=== PATIENT | male | born 1955 | race Hispanic/Latino ===

== ENCOUNTER 2024-06-01 19:59 | Inpatient (IN) | payer OTHER ==
[2024-06-01] MEDS ORDERED: ACETAMINOPHEN 500 MG TAB ONE (21:18)
[2024-06-01] MEDS ORDERED: NA CHLORIDE 0.9% 1,000 ML ONE (21:18)
[2024-06-01 21:35] LABS: Absolute Basophils 0.1 K/uL (0-0.5); Absolute Lymphocytes (CBC) 0.7 K/uL (0.7-4.9); Absolute Monocytes 0.3 K/uL (0.1-1.3); Basophils % 0.5 % (0-1.3); Eosinophils % 0.3 % (0-4.4); Hematocrit 39.7 % (39.6-49.0); Hemoglobin 13.6 g/dL (13.6-17.9); Lymphocytes % 5.4 % (15.3-44.8); MCH 32.1 pg (27.0-35.0); MCHC 34.3 g/dL (32.0-36.0); MCV 93.7 fL (80-100); MPV 8.9 fL (7.6-11.3); Monocytes % 2.1 % (3.3-12.3); Neutrophils % 91.7 % (41.7-73.7); Platelets 158 thou/uL (152-406); RBC Red Blood Cell Count 4.23 M/uL (4.33-5.43); Red Cell Distribution Width 14.1 % (12.1-15.2)
[2024-06-01 21:42] LABS: Specific Gravity 1.013 (1.005-1.030); Sqamous Epithelial <5 /HPF (None Seen); Urine Bacteria None Seen /HPF (<20); Urine Bilirubin NEGATIVE (Negative); Urine Blood 1+ (Negative); Urine Clarity Extremely Turbid (Clear); Urine Color Light-Yellow (Yellow); Urine Crystals Unidentified Few /HPF (None Seen); Urine Culture Reflex Order REFLEXED; Urine Glucose NEGATIVE (Negative); Urine Ketones NEGATIVE (Negative); Urine Microscopic Reflex YN ORDER UMIC; Urine Nitrite NEGATIVE (Negative); Urine Protein 1+ (Negative); Urine Urobilinogen Normal (Normal); Urine WBC >50 /HPF (<5); Urine WBC Clump Few /HPF (None Seen); Urine Yeast (Budding) Moderate /HPF (None Seen)
[2024-06-01 21:49] LABS: Albumin 3.8 g/dL (3.4-5.0); Albumin/Globulin Ratio 1.1 (1.1-1.8); Bilirubin Total 1.3 mg/dL (0.2-1.0); Globulin 3.5 g/dL (2.3-3.5); Protein, Total 7.3 g/dL (6.4-8.2)
[2024-06-01 21:54] LABS: Influenza A Ag Negative; Influenza B Ag Negative; SARS-CoV-2 Antigen Rapid Res Negative (Negative)
[2024-06-01 21:55] LABS: PT Prothrombin Time 13.4 SECONDS (10-13.0); PTT, Activated Partial Thromb 26.7 SECONDS (27.2-37.4); Protime INR 1.18
--- NOTE | 2024-06-01 22:35 | RAD REPORT ---
EXAMINATION: CT ABDOMEN AND PELVIS WITH CONTRAST CLINICAL INDICATION: sepsis, pyelo? TECHNIQUE: CT abdomen and pelvis was performed, after the administration of IV contrast, [facility]. Axial, sagittal and coronal reconstructions were obtained. One or more of the following dose reduction techniques were used: Automated exposure control, adjustment of the mA and k V according to patient size, and iterative reconstruction. Unless otherwise specified, incidental findings do not require dedicated imaging follow-up. COMPARISON: No prior exam. FINDINGS: LOWER CHEST: The visualized lung bases are clear. Small hiatal hernia. LIVER: Mild fatty liver is present. No focal lesion or biliary dilatation is seen. Grossly unremark able gallbladder. SPLEEN: Normal size. No focal lesion. 28 mm splenic artery aneurysm. PANCREAS: No mass, ductal dilation, or shila-pancreatic fluid. ADRENALS: Normal; no mass. KIDNEYS: Multiple cysts bilaterally, including complicated cyst measuring 5.3 cm left superior pole m edially. No solid mass or hydronephrosis. GASTROINTESTINAL TRACT: No evidence of free air, significant intra-abdominal free fluid, bowel obstru ction or abscess. There is mild diverticulosis coli of the sigmoid colon without diverticulitis. APPENDIX: Normal appendix. LYMPH NODES: No lymphadenopathy. MUSCULOSKELETAL: Moderate lower lumbar degenerative changes. ADDITIONAL FINDINGS: Mild prostate gland edema/inflammation possible. IMPRESSION: Mild prostatitis is a possibility. Recommend correlation with clinical prostate examination. Complex cystic lesion measuring 5.3 cm left medial kidney. Recommend follow-up MRI of the kidneys wit h contrast for further evaluation. 28 mm splenic artery aneurysm.
[2024-06-01 22:38] LABS: Band Neutrophils 25 % (0-1); Differential Total Cells Count 100; Lymphocytes 9 % (15-42); Monocytes 2 % (0-10); Segmented Neutrophils 64 % (40-80)
[2024-06-01 22:39] LABS: Blood Morphology Comment NOT SEEN (NOT SEEN); Platelet Estimate ADEQ
--- NOTE | 2024-06-01 22:45 | ER ---
Nurse's Notes [facility] Name: Nigel Horn Age: 68 yrs Sex: Male : 1955 Arrival Date: 06/01/2024 Time: 19:59 Bed 19 Private MD: Fidel Garcia Diagnosis: Acute prostatitis;Severe sepsis without septic shock Presentation: 06/01 20:25 Chief complaint: Patient states: BURNING WITH URINATION, FEVER AND MIDDLE BACK PAIN X1 dd2 DAY. Coronavirus screen: At this time, the client does not indicate any symptoms associated with coronavirus-19. Ebola Screen: No symptoms or risks identified at this time. Initial Sepsis Screen: Does the patient meet any 2 criteria? Temp <36.0*C (96.8*F)) or > 38.3*C (100.9*F). HR > 90 bpm. Yes Does the patient have a suspected source of infection? If YES to both, name of provider notified: Angie Mcgee PA-C. Risk Assessment: Do you want to hurt yourself or someone else? Patient reports no desire to harm self or others. Onset of symptoms was June 01, 2024. 20:25 Method Of Arrival: Ambulatory dd2 20:25 Acuity: RANJANA 3 dd2 Triage Assessment: 20:28 General: Appears in no apparent distress. uncomfortable, Behavior is calm, cooperative, dd2 appropriate for age. Pain: Complains of pain in lumbar area Pain does not radiate. Pain currently is 6 out of 10 on a pain scale. : Urine is cloudy, Reports burning with urination, pain in lower back. Historical: - Allergies: 20:27 No Known Allergies; dd2 - PMHx: 20:27 Hypertensive disorder; BPH; Hypothyroidism; dd2 20:28 Kidney stone; dd2 - PSHx: 20:27 Lithotripsy; dd2 - Immunization history:: Adult Immunizations up to date. - Infectious Disease History:: Denies. - Social history:: Smoking status: Patient denies any tobacco usage or history of. Screenin:30 [facility] ED Fall Risk Assessment (Adult) History of falling in the last 3 months, kj2 including since admission No falls in past 3 months (0 pts) Confusion or Disorientation No (0 pts) Intoxicated or Sedated No (0 pts) Impaired Gait No (0 pts) Mobility Assist Device Used No (0 pt) Altered Elimination No (0 pt) Score/Fall Risk Level 0 - 2 = Low Risk Maintained a safe environment, Hourly rounding (assess needs \T\ fall precautionary measures) done. Abuse screen: Denies threats or abuse. Denies injuries from another. Nutritional screening: No deficits noted. Tuberculosis screening: No symptoms or risk factors identified. Assessment: 20:30 General: Appears in no apparent distress. uncomfortable, Behavior is calm, cooperative. kj2 Pain: Complains of pain in back and lumbar area Pain currently is 8 out of 10 on a pain scale. Neuro: Level of Consciousness is awake, alert, obeys commands, Oriented to person, place, time, situation. Cardiovascular: Patient's skin is warm and dry. Respiratory: No deficits noted. GI: No deficits noted. : Parent/caregiver report the patient having pain with urination. 21:30 Reassessment: Patient appears in no apparent distress at this time. Patient and/or kj2 family updated on plan of care and expected duration. Pain level reassessed. Patient is alert, oriented x 3, equal unlabored respirations, skin warm/dry/pink. 22:25 Reassessment: Patient appears in no apparent distress at this time. Patient and/or kj2 family updated on plan of care and expected duration. Pain level reassessed. Patient is alert, oriented x 3, equal unlabored respirations, skin warm/dry/pink. 23:30 Reassessment: Patient appears in no apparent distress at this time. Patient and/or kj2 family updated on plan of care and expected duration. Pain level reassessed. Patient is alert, oriented x 3, equal unlabored respirations, skin warm/dry/pink. Vital Signs: 20:25 BP 130 / 87; Pulse 109; Resp 16; Temp 101.2; Pulse Ox 95% on R/A; Weight 95.25 kg (R); dd2 Height 5 ft. 7 in. ; Pain 6/10; 21:30 BP 136 / 76; Pulse 86; Resp 26; Pulse Ox 95% on 2.5 lpm NC; kj2 22:15 BP 133 / 75; Pulse 80; Resp 22; Pulse Ox 95% on 2.5 lpm NC; kj2 20:25 Body Mass Index 32.89 (95.25 kg, 170.18 cm) dd2 20:25 Pain Scale: Adult dd2 ED Course: 20:03 Patient arrived in ED. gm2 20:04 Fidel Garcia MD is Private Physician. gm2 20:14 Angie Mcgee PA-C is PHCP. sb4 20:14 Hosea Rivas MD is Attending Physician. sb4 20:27 Triage completed. dd2 20:28 Arm band placed on right wrist. dd2 20:30 Patient has correct armband on for positive identification. Call light in reach. Side kj2 rails up X 1. Adult w/ patient. Provided Education on: call light. 20:30 No provider procedures requiring assistance completed. kj2 20:52 EKG done, by ED staff, reviewed by Angie Mcgee PA-C. oe 20:54 First set of blood cultures drawn by me. oe 21:12 Second set of blood cultures drawn by me. oe 21:22 Marilu Mena, LUIS EDUARDO is Primary Nurse. kj2 21:22 Inserted saline lock: 20 gauge in right forearm, using aseptic technique. Blood oe collected. Flushed with 10 mL NS. 21:22 COVID-19 Ag + Flu A+B Ag Sent. oe 21:22 Blood Culture Adult (2) Sent. oe 21:23 CBC with Diff Sent. oe 21:23 CMP Sent. oe 21:23 Lactate w/ 2H reflex if indic. Sent. oe 21:23 Protime (+inr) Sent. oe 21:23 Ptt, Activated Sent. oe 21:23 Urinalysis w/ reflexes Sent. oe 22:29 CT Abd/Pelvis - IV Contrast Only In Process Unspecified. EDMS 22:44 Puneet Mccallum MD is Hospitalizing Provider. sb4 06/02 00:17 Report given to LUIS EDUARDO Evans. kj2 00:20 Patient admitted, IV remains in place. intact, No redness/swelling at site. rg5 03:10 Urinalysis w/ reflexes Sent. rg5 03:31 Glucose, Ancillary Testing Sent. rg5 Administered Medications: 06/01 21:27 Drug: Acetaminophen PO 1000 mg PO once Route: PO; kj2 23:17 Follow up: Response: No adverse reaction kj2 21:27 Drug: NS 0.9% IV 1000 ml IV at 1 bolus Per protocol; to be given as a bolus over 60 kj2 minutes Route: IV; Rate: 1 bolus; Site: right forearm; 06/02 00:00 Follow up: IV Status: Completed infusion; IV Intake: 1000ml rg5 06/01 23:09 Drug: Ciprofloxacin IVPB 400 mg 200 ml IVPB once over 60 mins Volume: 200 ml; Route: kj2 IVPB; Infused Over: 60 mins; Site: right forearm; 06/02 00:14 Follow up: Response: No adverse reaction kj2 00:20 Follow up: IV Status: Completed infusion; IV Intake: 200ml rg5 Medication: 01:36 VIS not applicable for this client. rg5 Intake: 00:00 IV: 1000ml; Total: 1000ml. rg5 00:20 IV: 200ml; Total: 1200ml. rg5 Outcome: 06/01 22:45 Decision to Hospitalize by Provider. sb4 06/02 00:20 Ad[facility] to ER Hold. [facility]. rg5 00:20 Condition: stable rg5 00:20 Instructed on the need for admit, 14:53 Patient left the ED. ap3 Signatures: Dispatcher [employer] EDMS Marquis Loza Amanda RN RN ap3 Angie Mcgee PA-C PA-C sb4 Lisa Castle gm2 Nathan Jordan RN RN rg5 Marilu Mena RN RN kj2 GISELA BENSON RN RN dd2 Corrections: (The following items were deleted from the chart) 06/01 20:34 20:25 Initial Sepsis Screen: Does the patient meet any 2 criteria? No. Patient's dd2 initial sepsis screen is negative. Does the patient have a suspected source of infection? No. Patient's initial sepsis screen is negative. dd2 21:00 20:59 NS 0.9% IV 1000 ml IV at 1 bolus in left antecubital kj2 kj2
--- NOTE | 2024-06-01 22:45 | EDPHYS ---
Physician Documentation [facility] Name: Nigel Horn Age: 68 yrs Sex: Male : 1955 Arrival Date: 06/01/2024 Time: 19:59 Bed 19 Private MD: Fidel Garcia ED Physician Hosea Rivas HPI: 06/01 22:08 This 68 yrs old Male presents to ER via Ambulatory with complaints of Pain sb4 With Urination, Fever. 22:08 Patient reports burning with urination, fever, and chills that all started this sb4 afternoon. He also reports of pain in his mid lower back, but states that he did have a bout of shingles recently as well. He reports history of UTIs and states that this feels similar. He denies any nausea, vomiting, diarrhea. Historical: - Allergies: 20:27 No Known Allergies; dd2 - PMHx: 20:27 Hypertensive disorder; BPH; Hypothyroidism; dd2 20:28 Kidney stone; dd2 - PSHx: 20:27 Lithotripsy; dd2 - Immunization history:: Adult Immunizations up to date. - Infectious Disease History:: Denies. - Social history:: Smoking status: Patient denies any tobacco usage or history of. ROS: 22:08 Abdomen/GI: Negative for abdominal pain, nausea, vomiting, diarrhea, and constipation, sb4 22:08 Constitutional: Positive for body aches, chills, fever, 22:08 Back: Positive for pain at rest, 22:08 : Positive for burning with urination, 22:08 All other systems are negative, Exam: 22:08 Constitutional: This is a well developed, well nourished patient who is awake, alert, sb4 and in no acute distress. Head/Face: Normocephalic, atraumatic. Eyes: Extra-ocular motions intact. Periorbital areas with no swelling, redness, or edema. ENT: Mucous membranes moist. Cardiovascular: Regular rate and rhythm with a normal S1 and S2. Respiratory: No increased work of breathing, no retractions or nasal flaring. Abdomen/GI: Soft, non-tender, no distension. Back: No spinal tenderness. No costovertebral tenderness. Full range of motion. Skin: Warm, dry with normal turgor. Normal color with no rashes, no lesions, and no evidence of cellulitis. Vital Signs: 20:25 BP 130 / 87; Pulse 109; Resp 16; Temp 101.2; Pulse Ox 95% on R/A; Weight 95.25 kg (R); dd2 Height 5 ft. 7 in. ; Pain 6/10; 21:30 BP 136 / 76; Pulse 86; Resp 26; Pulse Ox 95% on 2.5 lpm NC; kj2 22:15 BP 133 / 75; Pulse 80; Resp 22; Pulse Ox 95% on 2.5 lpm NC; kj2 20:25 Body Mass Index 32.89 (95.25 kg, 170.18 cm) dd2 20:25 Pain Scale: Adult dd2 MDM: 20:17 Medical Screening Exam initiated sb4 22:45 Data reviewed: vital signs, nurses notes, lab test result(s), EKG, radiologic studies, sb4 and as a result, I will admit patient. Consideration of Admission/Observation Patient was admitted/placed on observation. Care significantly affected by the following chronic conditions: Hypertension, Obesity. Counseling: I had a detailed discussion with the patient and/or guardian regarding the historical points, exam findings, and any diagnostic results supporting the discharge/admit diagnosis, lab results, radiology results, the need for further work-up and treatment in the hospital. Special discussion: I discussed with the patient the need to follow-up with the PCP/specialist for the noted incidental finding on X-ray/CT scanning. 06/01 20:28 Order name: Blood Culture Adult (2) sb4 06/01 20:28 Order name: CBC with Diff; Complete Time: 22:39 sb4 06/01 20:28 Order name: CMP; Complete Time: 21:49 sb4 06/01 20:28 Order name: Lactate w/ 2H reflex if indic.; Complete Time: 21:59 sb4 06/01 20:28 Order name: Protime (+inr); Complete Time: 21:59 sb4 06/01 20:28 Order name: Ptt, Activated; Complete Time: 21:59 sb4 06/01 20:28 Order name: Urinalysis w/ reflexes; Complete Time: 21:45 sb4 06/01 20:43 Order name: COVID-19 Ag + Flu A+B Ag; Complete Time: 21:59 sb4 06/01 21:45 Order name: Glucose, Ancillary Testing; Complete Time: 21:49 EDMS 06/01 21:47 Order name: Glucose, Ancillary Testing EDMS 06/01 21:47 Order name: Urine Culture EDMS 06/01 21:52 Order name: Manual Differential; Complete Time: 22:39 EDMS 06/01 21:56 Order name: Ghost Lactate-NO COLLECT Timer; Complete Time: 23:57 EDMS 06/01 23:47 Order name: Urinalysis w/ reflexes EDMS 06/01 23:47 Order name: CBC with Automated Diff EDMS 06/01 23:47 Order name: CBC with Automated Diff EDMS 06/01 23:47 Order name: Comprehensive Metabolic Panel EDMS 06/01 23:47 Order name: Comprehensive Metabolic Panel EDMS 06/02 01:05 Order name: Lactate Sepsis 2 HR Follow-up; Complete Time: 01:06 EDMS 06/01 22:00 Order name: CT Abd/Pelvis - IV Contrast Only; Complete Time: 22:36 sb4 06/01 20:28 Order name: Accucheck; Complete Time: 21:22 sb4 06/01 20:28 Order name: Cardiac monitoring; Complete Time: 21:22 sb4 06/01 20:28 Order name: EKG - Nurse/Tech; Complete Time: 21:22 sb4 06/01 20:28 Order name: IV Saline Lock - Large Bore; Complete Time: 21:22 sb4 06/01 20:28 Order name: Labs collected and sent; Complete Time: 21:22 sb4 06/01 20:28 Order name: O2 Per Protocol; Complete Time: 21:43 sb4 06/01 20:28 Order name: O2 Sat Monitoring; Complete Time: 21:43 sb4 06/01 20:28 Order name: Vital Signs; Complete Time: 21:28 sb4 EC:46 Rate is 109 beats/min. Rhythm is regular, Sinus tachycardia. Right axis deviation sb4 noted. [place] interval is normal at 86 msec. QRS interval is normal at 86 msec. QT interval is normal at 320 msec. No Q waves. T waves are Normal. No ST changes noted. Clinical impression: Sinus tachycardia. Interpreted by me. Reviewed by me. Administered Medications: 21:27 Drug: Acetaminophen PO 1000 mg PO once Route: PO; kj2 23:17 Follow up: Response: No adverse reaction kj2 21:27 Drug: NS 0.9% IV 1000 ml IV at 1 bolus Per protocol; to be given as a bolus over 60 kj2 minutes Route: IV; Rate: 1 bolus; Site: right forearm; 06/02 00:00 Follow up: IV Status: Completed infusion; IV Intake: 1000ml rg5 06/01 23:09 Drug: Ciprofloxacin IVPB 400 mg 200 ml IVPB once over 60 mins Volume: 200 ml; Route: kj2 IVPB; Infused Over: 60 mins; Site: right forearm; 06/02 00:14 Follow up: Response: No adverse reaction kj2 00:20 Follow up: IV Status: Completed infusion; IV Intake: 200ml rg5 Disposition: 05:07 Co-signature as Attending Physician, Hosea Rivas MD I agree with the assessment sp4 and plan of care. I reviewed the patient's care provided by Advanced Practice Provider \T\ agree w/ the diagnosis \T\ care plan. I personally saw the pt \T\ performed a substantive portion of the visit, incldng all aspects of the (History/Exam/Medical Decision Making). Disposition Summary: 06/01/24 22:45 Hospitalization Ordered Notes: Hospitalization Status: Inpatient Admission sb4 Provider: Puneet Mccallum sb4 Condition: Fair sb4 Problem: new sb4 Symptoms: are unchanged sb4 Bed/Room Type: Standard sb4 Location: Telemetry/MedSurg (Inpatient)(06/02/24 13:22) bd Room Assignment: 225(06/02/24 13:22) bd Diagnosis - Acute prostatitis sb4 - Severe sepsis without septic shock sb4 Forms: - Medication Reconciliation Form sb4 - SBAR form sb4 - Leadership Thank You Letter sb4 Signatures: Dispatcher [employer] EDAsia Gregory Sophia, PA-C PAMaria Victoria sb4 Hosea Rivas MD MD sp4 Sonia Gutiérrez Krystal, RN RN kj2 GISELA BENSON RN RN dd2 Nathan Jordan RN rg5 Corrections: (The following items were deleted from the chart) 06/01 20:29 20:29 BLOOD CULTURE*+BA.LAB.BRZ ordered. EDMS EDMS 20:29 20:29 CBC+H.LAB.BRZ ordered. EDMS EDMS 20: 20:29 COMPREHENSIVE METABOLIC PANEL+C.LAB.BRZ ordered. EDMS EDMS 20: 20:29 LACTATE+C.LAB.BRZ ordered. EDMS EDMS 20: 20:29 PROTIME (+INR)+COAG.LAB.BRZ ordered. EDMS EDMS 20: 20:29 PTT, ACTIVATED+COAG.LAB.BRZ ordered. EDMS EDMS 20: 20:29 Urinalysis+U.LAB.BRZ ordered. EDMS EDMS 20:44 20:44 COVID-19 Ag + Flu A+B Ag+I.LAB.BRZ ordered. EDMS EDMS 23:37 22:45 Telemetry/MedSurg (Inpatient) sb4 vk 23:37 22:45 sb4 vk 23:56 23:56 LACTATE+C.LAB.BRZ ordered. EDMS EDMS 06/02 13:22 06/01 23:37 [facility] ER HOLD vk bd 06/02 13:22 06/01 23:37 ERHOLD- vk bd
[2024-06-01] MEDS ORDERED: CIPROFLOXACIN 400mg IV 400 MG/200 ML BAG IV ONE (23:04)
[2024-06-01] MEDS ORDERED: ONDANSETRON 4 MG/2 ML VIAL IV PRN (23:43)
--- NOTE | 2024-06-01 23:43 | P.HP ---
Certification for Inpatient Patient admitted to: Inpatient With expected LOS: >2 Midnights Practitioner: I am a practitioner with admitting privileges, knowledge of patient current condition, hospital course, and medical plan of care. Services: Services provided to patient in accordance with Admission requirements found in Title 42 Section 412.3 of the Code of Federal Regulations Patient History Date of Service: 06/02/24 Reason for admission: Dysuria History of Present Illness: 68 yrs old Male with past medical history of hypertension, hypothyroidism, BPH, history of kidney stone status post lithotripsy who was brought to ER with dysuria and subjective fever which has been going on since this morning. Patient started having subjective fever and associated chills this afternoon later on started having urination difficulties and dysuria. He also complains of pain in mid lower back. Patient denies any nausea vomiting or diarrhea. No sick contacts. Patient was assessed in the ER and was admitted for further management of possible prostatitis Allergies No Known Allergies Allergy (Unverified 06/01/24 23:48) Home medications list reviewed: Yes - Past Medical/Surgical History Past Medical History: Reviewed- Non-Contributory -: Hypertension, BPH, kidney stones Past Surgical History: Reviewed- Non-Contributory -: Lithotripsy - Family History Family History: Reviewed- Non-Contributory - Social History Smoking Status: Never smoker Review of Systems 10-point ROS is otherwise unremarkable Physical Examination - Vital Signs Temperature: 98.5 F Blood Pressure: 128/77 Pulse: 76 Respirations: 18 Pulse Ox (%): 94 - Physical Exam General: Alert, Oriented x3, Mild distress HEENT: Atraumatic, Normocephalic Neck: Supple, No Thyromegaly Respiratory: Clear to auscultation bilaterally, Normal air movement Capillary refill: <2 Seconds Gastrointestinal: Soft and benign, W/out hepatosplenomegaly Musculoskeletal: No clubbing, No swelling Integumentary: No rashes, No tenderness/swelling Neurological: Other (Alert , Awake , non focal ) Lymphatics: No axilla or inguinal lymphadenopathy - Studies Laboratory Data (last 24 hrs) 06/01/24 06/01/24 06/01/24 20:54 20:54 20:54 WBC 13.10 H Hgb 13.6 Hct 39.7 Plt Count 158 PT 13.4 H INR 1.18 APTT 26.7 L Sodium 132 L Potassium 3.0 L BUN 15 Creatinine 1.10 Glucose 128 H Total Bilirubin 1.3 H AST 20 ALT 31 Alkaline Phosphatase 54 Assessment and Plan - Plan Severe sepsis Lactic acidosis Leukocytosis Prostatitis UTI Monitor closely on telemetry Aggressive hydration Started on IV antibiotic Obtain cultures Change antibiotic as per sensitivity Hyponatremia Hypokalemia Monitor renal parameters Electrolytes monitor and replace accordingly Hypertension Antihypertensives titrated Continue home medications and titrate as needed GI/DVT prophylaxis Advanced directive full code Discharge Plan: Home Plan to discharge in: 48 Hours - Advance Directives Does patient have a Living Will: No Does patient have a Durable POA for Healthcare: No - Code Status/Comfort Care Code Status: Full Code Time Spent Managing Pts Care (In Minutes): 54
[2024-06-01] MEDS: NA CHLORIDE 0.9% 1,000 ML IV SCH (23:45)
[2024-06-01] MEDS ORDERED: HYDROCODONE/APAP 5/325 MG TAB PO PRN (23:46)
[2024-06-01] MEDS ORDERED: MORPHINE 2 MG/ML SYR IV PRN (23:46)
[2024-06-02 00:04] VITALS: BMI 32.7
[2024-06-02] MEDS ORDERED: NA CHLORIDE 0.9% 1,000 ML ONE ×2 (01:19→08:09)
[2024-06-02] MEDS ORDERED: NA CHLORIDE 0.9% 50 ML ONE (01:20)
[2024-06-02] MEDS ORDERED: PIPERACIL/TAZO 3.375 GM VIAL IV ONE ×2 (01:20→08:09)
[2024-06-02] MEDS: PIPER TAZO 3.375 GM in NA CHLORIDE 0.9% 100 ML IV ONE (01:21)
[2024-06-02 05:21] LABS: Absolute Basophils 0.1 K/uL (0-0.5); Absolute Lymphocytes (CBC) 1.4 K/uL (0.7-4.9); Absolute Neutrophil 17.2 K/uL (1.8-8.0); Basophils % 0.4 % (0-1.3); Eosinophils % 0.1 % (0-4.4); Hematocrit 36.5 % (39.6-49.0); Hemoglobin 12.9 g/dL (13.6-17.9); Lymphocytes % 7.1 % (15.3-44.8); MCHC 35.2 g/dL (32.0-36.0); MCV 93.6 fL (80-100); Monocytes % 5.2 % (3.3-12.3); Neutrophils % 87.2 % (41.7-73.7); Nucleated Red Blood Cells % 0.1 % (0-0); Platelets 144 thou/uL (152-406); Red Cell Distribution Width 14.1 % (12.1-15.2)
[2024-06-02 05:43] LABS: Albumin 3.2 g/dL (3.4-5.0); Anion Gap 9.9 mEq/L (5.0-15.0); Bilirubin Total 1.3 mg/dL (0.2-1.0); Globulin 3.2 g/dL (2.3-3.5); Potassium 2.9 mEq/L (3.5-5.1); Protein, Total 6.4 g/dL (6.4-8.2)
--- NOTE | 2024-06-02 06:59 | P.PN ---
Date of Service: 06/02/24 Subjective: feeling better denies having rectal pain reports had prostatitis in his early 20s, h/o kidney stones, but denies many UTIs ROS: 10 point ROS as noted above, otherwise negative Physical Exam: GEN: Alert, oriented, NAD CV: Regular rate and rhythm, no edema Pulm: Nonlabored respirations on room air, clear bilaterally ABD: soft, nontender, nondistended Problem List: Severe sepsis likely secondary to acute prostatitis vs UTI Hypokalemia Hyponatremia, improved Left kidney cystic lesion - 5.3 cm, incidental finding Hypertension Hypothyroidism BPH Hx nephrolithiasis s/p lithotripsy Severe sepsis likely secondary to acute prostatitis vs UTI Hx nephrolithiasis s/p lithotripsy on admission presents with dysuria, lower back pain, fever/chills for ~1 day. Denies n/v/d. Denies recent sick contacts. Recently got over episode of shingles. CT abd/pelvis (06/01): Possible Mild prostatitis. Complex cystic lesion measuring 5.3 cm left medial kidney. 28 mm splenic artery aneurysm UA+ with moderate yeast. Flu/Covid negative. Follow urine and blood cultures. empiric Zosyn (06/02-) pain control Hypokalemia Hyponatremia, improved given 1L IVF bolus in ED. Monitor and replete electrolytes as needed. Continue IV fluids. Left kidney cystic lesion - 5.3 cm, incidental finding CT abdomen incidentally noted a complex cystic lesion measuring 5.3 cm left medial kidney. Hypertension Hypothyroidism BPH confirm home meds, restart as appropriate VTE: Lovenox Code: Full Dispo: Home, ~2-3 days pending cultures / improvement Time Spent Managing Pts Care (In Minutes): 55
[2024-06-02] MEDS ORDERED: ENOXAPARIN 40 MG/0.4 ML SQ ONE (08:08)
[2024-06-02] MEDS ORDERED: NA CHLORIDE 0.9% 100 ML ONE (08:08)
[2024-06-02] MEDS: ENOXAPARIN 40 MG/0.4 ML SQ SCH (08:24)
[2024-06-02] MEDS: PIPER TAZO 3.375 GM in NA CHLORIDE 0.9% 100 ML IV SCH (08:25)
[2024-06-02] MEDS ORDERED: ACETAMINOPHEN 325 MG TABLET ONE (12:30)
[2024-06-02] MEDS: ACETAMINOPHEN 325 MG TABLET PO PRN (12:39)
[2024-06-02] MEDS: KCL 20 MEQ/100 mL IVPB 20 MEQ/100 ML BAG IV SCH (15:07)
[2024-06-02] MEDS: ACETAMINOPHEN 325 MG TABLET PO ONE (15:48)
[2024-06-03 02:31] LABS: C.diff Antigen/Toxin Ag neg : Tox neg (NEG : NEG); CDIFF INTERNAL NEG CONTROL White Background (WHITE BKGD); STOOL CONSISTENCY Liquid/Semi-Solid
[2024-06-03 05:01] LABS: Absolute Lymphocytes (CBC) 1.8 K/uL (0.7-4.9); Absolute Monocytes 1.2 K/uL (0.1-1.3); Absolute Neutrophil 15.6 K/uL (1.8-8.0); Basophils % 0.2 % (0-1.3); Eosinophils % 0.1 % (0-4.4); Hematocrit 33.9 % (39.6-49.0); Hemoglobin 11.8 g/dL (13.6-17.9); Lymphocytes % 9.8 % (15.3-44.8); MCH 32.9 pg (27.0-35.0); MCHC 34.8 g/dL (32.0-36.0); MCV 94.6 fL (80-100); MPV 9.6 fL (7.6-11.3); Monocytes % 6.4 % (3.3-12.3); Neutrophils % 83.5 % (41.7-73.7); Platelets 116 thou/uL (152-406); RBC Red Blood Cell Count 3.58 M/uL (4.33-5.43); Red Cell Distribution Width 14.1 % (12.1-15.2)
[2024-06-03 05:27] LABS: Albumin/Globulin Ratio 0.9 (1.1-1.8); Anion Gap 10.1 mEq/L (5.0-15.0); Bilirubin Total 1.8 mg/dL (0.2-1.0); Globulin 3.3 g/dL (2.3-3.5); Potassium 3.1 mEq/L (3.5-5.1); Protein, Total 6.3 g/dL (6.4-8.2)
[2024-06-03] MEDS: Magnesium Sulfate 2gm IVPB 2 G/50 ML BAG IV ONE (06:10)
[2024-06-03] MEDS: KCL 20 MEQ/100 mL IVPB 20 MEQ/100 ML BAG IV SCH (06:10)
[2024-06-03] MEDS: LOPERAMIDE HCL 2 MG CAPSULE PO PRN (06:10)
[2024-06-03] MEDS: LEVOTHYROXINE SOD 0.05 MG TABLET PO SCH (09:04)
[2024-06-03] MEDS: ASPIRIN EC 81 MG TAB PO SCH (09:04)
[2024-06-03] MEDS: TAMSULOSIN 0.4 MG SR CAP PO SCH (09:04)
--- NOTE | 2024-06-03 12:12 | P.PN ---
Date of Service: 06/03/24 Subjective: continues with some dysuria but improving compared to yesterday multiple episodes of diarrhea overnight; ~6 times in the last 24 hours. otherwise doing okay appetite improving ambulating without issues ROS: 10 point ROS as noted above, otherwise negative Physical Exam: GEN: Alert, oriented, NAD CV: Regular rate and rhythm, no edema Pulm: Nonlabored respirations on room air, clear bilaterally ABD: soft, nontender, nondistended Problem List: Severe sepsis likely secondary to acute prostatitis vs UTI Hypokalemia Hyponatremia, improved Left kidney cystic lesion - 5.3 cm, incidental finding Hypertension Hypothyroidism BPH Hx nephrolithiasis s/p lithotripsy Severe sepsis likely secondary to acute prostatitis vs UTI Hx nephrolithiasis s/p lithotripsy on admission presents with dysuria, lower back pain, fever/chills for ~1 day. Denies n/v/d. Denies recent sick contacts. Recently got over episode of shingles. CT abd/pelvis (06/01): Possible Mild prostatitis. Complex cystic lesion measuring 5.3 cm left medial kidney. 28 mm splenic artery aneurysm UA+ with moderate yeast. Flu/Covid negative. Follow urine and blood cultures. empiric Zosyn (06/02-) pain control 06/03 - Urine culture prelim growing 3+ GNR multiple episodes of diarrhea yesterday; C. diff negative PRN imodium added afebrile, leukocytosis improving Dysuria improving Hypokalemia Hyponatremia, improved given 1L IVF bolus in ED. Monitor and replete electrolytes as needed. 06/03 - dc IVF Left kidney cystic lesion - 5.3 cm, incidental finding CT abdomen incidentally noted a complex cystic lesion measuring 5.3 cm left medial kidney. Hypertension Hypothyroidism BPH confirm home meds, restart as appropriate VTE: Lovenox Code: Full Dispo: Home, ~1-2 days pending final cultures / improvement Time Spent Managing Pts Care (In Minutes): 55
[2024-06-03] MEDS: POTASSIUM CL SA 10 MEQ TAB PO ONE (20:56)
[2024-06-03] MEDS: ATORVASTATIN 10 MG TAB PO SCH (20:56)
[2024-06-03] MEDS: MAGNESIUM OXIDE 400 MG TAB PO SCH (20:57)
[2024-06-04 04:45] LABS: Absolute Eosinophils 0.1 K/uL (0-0.5); Absolute Lymphocytes (CBC) 1.1 K/uL (0.7-4.9); Absolute Monocytes 0.4 K/uL (0.1-1.3); Absolute Neutrophil 7.4 K/uL (1.8-8.0); Basophils % 0.4 % (0-1.3); Eosinophils % 1.4 % (0-4.4); Hematocrit 34.4 % (39.6-49.0); Hemoglobin 12.1 g/dL (13.6-17.9); Lymphocytes % 12.3 % (15.3-44.8); MCH 32.9 pg (27.0-35.0); MCHC 35.1 g/dL (32.0-36.0); MCV 93.7 fL (80-100); MPV 9.7 fL (7.6-11.3); Monocytes % 4.7 % (3.3-12.3); Neutrophils % 81.2 % (41.7-73.7); Nucleated Red Blood Cells % 0.1 % (0-0); Platelets 120 thou/uL (152-406); RBC Red Blood Cell Count 3.68 M/uL (4.33-5.43); Red Cell Distribution Width 14.3 % (12.1-15.2)
[2024-06-04 05:58] LABS: Albumin/Globulin Ratio 0.8 (1.1-1.8); Anion Gap 9.2 mEq/L (5.0-15.0); Bilirubin Total 0.9 mg/dL (0.2-1.0); Globulin 3.9 g/dL (2.3-3.5); Magnesium 1.6 mg/dL (1.6-2.4); Potassium 3.2 mEq/L (3.5-5.1); Protein, Total 6.9 g/dL (6.4-8.2)
[2024-06-04] MEDS: MAGNESIUM SULFATE 1 gm IVPB 1 GM/100 ML BAG IV ONE (06:27)
[2024-06-04] MEDS: POTASSIUM 25 MEQ EFFERV TAB PO ONE (07:36)
[2024-06-04] MEDS: Levofloxacin 750mg IV 750 MG/150 ML BAG IV SCH (08:22)
--- NOTE | 2024-06-04 08:47 | EKG ---
Test Date: 2024-06-01 Test Time: 20:40:49 Lithographers Printer: VIJI MEASUREMENT RESULTS: Intervals: Rate: 109 OK: 188 QRSD: 86 QT: 320 QTc: 430 [place]: P: 29 OK: 188 QRS: 221 T: 38 INTERPRETIVE STATEMENTS: Sinus tachycardia Right superior axis deviation Inferior infarct, age undetermined Abnormal ECG Compared to ECG 08/30/2005 00:46:00 Right superior axis now present Myocardial infarct finding now present Sinus bradycardia no longer present First degree AV block no longer present Electronically Signed On 06-04-24 08:39:14 CDT by Erick Leger
--- NOTE | 2024-06-04 09:16 | P.PN ---
Date of Service: 06/04/24 Subjective: improving daily no acute events overnight afebrile ROS: 10 point ROS as noted above, otherwise negative Physical Exam: GEN: Alert, oriented, NAD CV: Regular rate and rhythm, no edema Pulm: Nonlabored respirations on room air, clear bilaterally ABD: soft, nontender, nondistended Problem List: Severe sepsis likely secondary to acute prostatitis vs UTI Hypokalemia Hyponatremia, improved Left kidney cystic lesion - 5.3 cm, incidental finding Hypertension Hypothyroidism BPH Hx nephrolithiasis s/p lithotripsy Severe sepsis likely secondary to acute prostatitis vs UTI Hx nephrolithiasis s/p lithotripsy on admission presents with dysuria, lower back pain, fever/chills for ~1 day. Denies n/v/d. Denies recent sick contacts. Recently got over episode of shingles. CT abd/pelvis (06/01): Possible Mild prostatitis. Complex cystic lesion measuring 5.3 cm left medial kidney. 28 mm splenic artery aneurysm UA+ with moderate yeast. Flu/Covid negative. Blood cx (06/01): NGTD pain control 06/03 - Urine culture prelim growing 3+ GNR multiple episodes of diarrhea yesterday; C. diff negative PRN imodium added Dysuria improving Leukocytosis improving, intermittent low grade temps 06/04 - Urine culture grew Serratia Marcescens, resistant to Zosyn switch IV zosyn (06/02-06/04) to IV levaquin given culture results Leukocytosis resolved, afebrile Hypokalemia Hyponatremia, improved given 1L IVF bolus in ED. Monitor and replete electrolytes as needed. 06/03 - dc IVF Left kidney cystic lesion - 5.3 cm, incidental finding CT abdomen incidentally noted a complex cystic lesion measuring 5.3 cm left medial kidney. 06/04 - Discussed results with patient. He's not 100% certain if hes had prior work up / imaging done. No prior records to compare to. He reports seeing Dr. Ugalde in the past for his prostate issues. prior note by urology noted multiple bilatera simple cysts in 2021 f/u PCP/urology for further discussion, consider outpatient MRI to further evaluate lesion. Hypertension Hypothyroidism BPH confirm home meds, restart as appropriate VTE: Lovenox Code: Full Dispo: Home, ~1 day Time Spent Managing Pts Care (In Minutes): 55
[2024-06-04] MEDS: CALCIUM CARBONATE CHEW 500MG TAB PO PRN (22:31)
[2024-06-05 03:20] VITALS: O2SAT 95
[2024-06-05 04:30] LABS: Absolute Basophils 0.1 K/uL (0-0.5); Absolute Eosinophils 0.2 K/uL (0-0.5); Absolute Lymphocytes (CBC) 1.6 K/uL (0.7-4.9); Absolute Monocytes 0.8 K/uL (0.1-1.3); Absolute Neutrophil 4.7 K/uL (1.8-8.0); Basophils % 0.8 % (0-1.3); Eosinophils % 2.5 % (0-4.4); Hematocrit 36.5 % (39.6-49.0); Hemoglobin 12.7 g/dL (13.6-17.9); Lymphocytes % 21.3 % (15.3-44.8); MCH 32.6 pg (27.0-35.0); MCHC 34.8 g/dL (32.0-36.0); MCV 93.7 fL (80-100); MPV 9.2 fL (7.6-11.3); Monocytes % 11.3 % (3.3-12.3); Neutrophils % 64.1 % (41.7-73.7); Platelets 158 thou/uL (152-406); RBC Red Blood Cell Count 3.89 M/uL (4.33-5.43); Red Cell Distribution Width 13.8 % (12.1-15.2)
[2024-06-05 05:12] LABS: Albumin 3.1 g/dL (3.4-5.0); Albumin/Globulin Ratio 0.8 (1.1-1.8); Anion Gap 7.5 mEq/L (5.0-15.0); Bilirubin Total 0.5 mg/dL (0.2-1.0); Magnesium 2.1 mg/dL (1.6-2.4); Potassium 4.5 mEq/L (3.5-5.1); Protein, Total 7.1 g/dL (6.4-8.2)
[2024-06-05 08:52] VITALS: BP 126/74; TEMP 98.5
--- NOTE | 2024-06-05 09:26 | P.DS ---
Admission Date: 06/01/24 Discharge Date: 06/05/24 Reason for Admission: Dysuria Brief History of Present Illness: 68yo M, PMH: hypertension, hypothyroidism, BPH, history of kidney stone status post lithotripsy Patient was brought to ER with dysuria and subjective fever which has been going on since this morning. Patient started having subjective fever and associated chills this afternoon later on started having urination difficulties and dysuria. He also complains of pain in mid lower back. Patient denies any nausea vomiting or diarrhea. No sick contacts. Patient was assessed in the ER and was admitted for further management of possible prostatitis Hospital Course: Problem List: Severe sepsis likely secondary to acute prostatitis vs UTI Hypokalemia Hyponatremia, improved Left kidney cystic lesion - 5.3 cm, incidental finding Hypertension Hypothyroidism BPH Hx nephrolithiasis s/p lithotripsy Physician discharge instructions: Patient presented with dysuria, lower back pain, fever/chills for ~1 day likely secondary to acute mild prostatitis vs UTI. Urine culture grew Serratia Marcescens, resistant to Zosyn. CT abdomen pelvis was concerning for possible mild prostatitis and also noted complex cystic lesion measuring 5.3 cm left medial kidney, 28 mm splenic artery aneurysm. Patient was started on empiric zosyn and had improvement of his symptoms. Blood cultures have been without growth since 06/01. Flu/Covid screening were negatie. IV Zosyn was switched to IV levaquin following culture results and patient continued to improve. Leukocytosis resolved 06/04. Patient was feeling better, afebrile without leukcytosis > 48 hours, dysuria improved, UOP improving, and was deemed stable for discharge. Recommend following up with Urology in the next 2-4 weeks for further management. Patient reports having follow up already scheduled with Dr. Ugalde, Urology sometime in mid-June. Patient is to complete 4 weeks of oral levaquin on discharge to cover acute prostatitis, also covers UTI. In regards to incidental complex cystic lesion seen on CT - no other imaging to compare to. On review of past records, Urologist progress note from 2021 noted bilateral simple cysts. Advised patient to follow up with PCP for further discussion and to consider outpatient MRI to further evaluate lesion. Blood pressure was noted to be intermittently low-normal throughout hospitalization while off his home medications. Continue to hold antihypertensives for now. Recommend restarting antihypertensives one by one in a step morales-fashion once blood pressure is more consistently > 140. Advised to check blood pressure around the same time each day. If consistently > 140 systolic, okay to take home losartan. Monitor blood pressure for the next 1-2 days. If still consistently > 140 systolic after 1-2 days, restart amlodipine. If still consistently > 140 systolic after 1-2 days, restart metoprolol. Keep daily log of blood pressure readings to take to follow up appointments for further adjustments of medications Medications: Levaquin daily for 4 weeks Recommend taking over the counter Probiotic while on antibiotics (Levaquin) Hold antihypertensives - Losartan, Amlodipine, and Metoprolol. Restart Antihypertensives in step-morales fashion as discussed above. Follow up: PCP 3-5 days Urology in next 2-4 weeks. Please call to schedule / confirm appointments CT abdomen/pelvis 06/01/24 IMPRESSION: Mild prostatitis is a possibility. Recommend correlation with clinical prostate examination. Multiple cysts bilaterally, including complicated cyst measuring 5.3 cm left superior pole medially. No solid mass or hydronephrosis. Recommend follow-up MRI of the kidneys with contrast for further evaluation. 28 mm splenic artery aneurysm Physical Exam: GEN: Alert, oriented, NAD CV: Regular rate and rhythm, no edema Pulm: Nonlabored respirations on room air, clear bilaterally ABD: soft, nontender, nondistended Neuro: Normal speech, normal affect Vital Signs/Physical Exam: Temp Pulse Resp BP Pulse Ox 98.5 F 73 20 126/74 92 06/05/24 08:00 06/05/24 08:00 06/05/24 08:00 06/05/24 08:00 06/05/24 08:00 Laboratory Data at Discharge: WBC 7.40 thou/uL (4.3-10.9) 06/05/24 04:10 Hgb 12.7 g/dL (13.6-17.9) L 06/05/24 04:10 Hct 36.5 % (39.6-49.0) L 06/05/24 04:10 Plt Count 158 thou/uL (152-406) D 06/05/24 04:10 PT 13.4 SECONDS (10-13.0) H 06/01/24 20:54 INR 1.18 06/01/24 20:54 APTT 26.7 SECONDS (27.2-37.4) L 06/01/24 20:54 Sodium 134 mEq/L (136-145) L 06/05/24 04:10 Potassium 4.5 mEq/L (3.5-5.1) D 06/05/24 04:10 BUN 12 mg/dL (7-18) 06/05/24 04:10 Creatinine 0.98 mg/dL (0.70-1.30) 06/05/24 04:10 Glucose 126 mg/dL (74-106) H 06/05/24 04:10 Magnesium 2.1 mg/dL (1.6-2.4) 06/05/24 04:10 Total Bilirubin 0.5 mg/dL (0.2-1.0) 06/05/24 04:10 AST 18 U/L (15-37) 06/05/24 04:10 ALT 35 U/L (16-61) 06/05/24 04:10 Alkaline Phosphatase 55 U/L (45-117) 06/05/24 04:10 Home Medications: Allopurinol 300 mg PO DAILY 06/02/24 Amlodipine Besylate 10 mg PO DAILY 06/02/24 Aspirin [Adult Aspirin Regimen] 81 mg PO DAILY 06/02/24 Atorvastatin Calcium [Lipitor*] 10 mg PO DAILY 06/02/24 Cholecalciferol (Vitamin D3) [Vitamin D3] 2 cap PO DAILY 06/02/24 Docosahexanoic AC/Epa [Fish Oil 1,000 MG*] 1,000 mg PO DAILY 06/02/24 Levothyroxine [Synthroid*] 0.05 mg PO DAILY 06/02/24 Losartan Potassium 50 mg PO DAILY 06/02/24 Magnesium [Magnesium Gluconate] 200 mg PO BID 06/02/24 Metoprolol Succinate 50 mg PO DAILY 06/02/24 Spironolactone 25 mg PO DAILY 06/02/24 Tamsulosin [Flomax*] 0.4 mg PO DAILY 06/02/24 levoFLOXacin [Levaquin] 750 mg PO DAILY 28 Days #28 tab 06/05/24 New Medications: levoFLOXacin [Levaquin] 750 mg PO DAILY 28 Days #28 tab Physician Discharge Instructions: Physician discharge instructions: Patient presented with dysuria, lower back pain, fever/chills for ~1 day likely secondary to acute mild prostatitis vs UTI. Urine culture grew Serratia Marcescens, resistant to Zosyn. CT abdomen pelvis was concerning for possible mild prostatitis and also noted complex cystic lesion measuring 5.3 cm left medial kidney, 28 mm splenic artery aneurysm. Patient was started on empiric zosyn and had improvement of his symptoms. Blood cultures have been without growth since 06/01. Flu/Covid screening were negatie. IV Zosyn was switched to IV levaquin following culture results and patient continued to improve. Leukocytosis resolved 06/04. Patient was feeling better, afebrile without leukcytosis > 48 hours, dysuria improved, UOP improving, and was deemed stable for discharge. Recommend following up with Urology in the next 2-4 weeks for further man agement. Patient reports having follow up already scheduled with Dr. Ugalde, Urology sometime in mid-June. Patient is to complete 4 weeks of oral levaquin on discharge to cover acute prostatitis, also covers UTI. In regards to incidental complex cystic lesion seen on CT - no other imaging to compare to. On review of past records, Urologist progress note from 2021 noted bilateral simple cysts. Advised patient to follow up with PCP for further discussion and to consider outpatient MRI to further evaluate lesion. Blood pressure was noted to be low-normal throughout hospitalization while off his home medications. Advised patient to continue to hold antihypertensives for now. Restart antihypertensives in a step morales-fashion once blood pressure is consistently > 140. Advised to check blood pressure around the same time each day. If consistently > 140 systolic, okay to take home losartan. If still consistently > 140 systolic after 1-2 days, restart amlodipine, then metoprolol Keep daily log of blood pressure readings to take to follow up appointments for further adjustments of medications. Medications: Levaquin daily for 4 weeks Recommend taking over the counter Probiotic while on antibiotics (Levaquin) Follow up: PCP 3-5 days Urology in next 2-4 weeks. Please call to schedule / confirm appointments CT abdomen/pelvis 06/01/24 IMPRESSION: Mild prostatitis is a possibility. Recommend correlation with clinical prostate examination. Multiple cysts bilaterally, including complicated cyst measuring 5.3 cm left superior pole medially. No solid mass or hydronephrosis. Recommend follow-up MRI of the kidneys with contrast for further evaluation. 28 mm splenic artery aneurysm Followup: Fidel Garcia MD [Primary Care Provider] - 1 Week Time spent managing pt's care (in minutes): 45
== END 2024-06-05 10:25 | disposition home or self-care (01) | DRG 872 ==
LOC: ER 19:59 → ERHOLD 23:43 → 2ND 06-02 14:13
PROVIDERS: ADMIT Family Medicine; ATTEND Hospitalist
DX: A41.9 Sepsis, unspecified organism (principal); E87.20 Acidosis, unspecified; E87.1 Hypo-osmolality and hyponatremia; N39.0 Urinary tract infection, site not specified; N41.0 Acute prostatitis; Z16.11 Resistance to penicillins; I10 Essential (primary) hypertension; E03.9 Hypothyroidism, unspecified; I72.8 Aneurysm of other specified arteries; R65.20 Severe sepsis without septic shock; E87.6 Hypokalemia; N40.1 Benign prostatic hyperplasia with lower urinary tract symptoms; N28.1 Cyst of kidney, acquired; B96.89 Other specified bacterial agents as the cause of diseases classified elsewhere; Z11.52 Encounter for screening for COVID-19
CPT/HCPCS: 36415; 74177; 80053; 81001; 82947; 83605; 83735; 84132; 85025; 85610; 85730; 87040; 87077; 87086; 87088; 87186; 87324; 87428; 93005; 96361; 96365; 99285; J0744; J1650; J2543; J3475; J3480; J7030; Q9967